=== PATIENT | female | born 2005 | race Hispanic/Latino ===

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

== ENCOUNTER 2024-01-23 15:33 | Emergency (ER) | payer OTHER ==
[~2024-01-23] VITALS: Ht 160 cm; Wt 59.0 kg
[~2024-01-23 15:33] MED LIST changes: -ACETAMINOPHEN 325 MG TAB PO ONE
[2024-01-23] MEDS ORDERED: KETO10TA2 PO (16:29)
[2024-01-23 16:42] VITALS: BP 109/51; PULSE 84; RESP 16; TEMP 98.3; O2SAT 99
== END 2024-01-23 16:57 | disposition home or self-care (01) ==
LOC: EDH 15:33
DX: R07.89 Other chest pain (principal); M25.552 Pain in left hip; Z79.899 Other long term (current) drug therapy; Z88.1 Allergy status to other antibiotic agents; V89.2XXA Person injured in unspecified motor-vehicle accident, traffic, initial encounter; Y93.89 Activity, other specified; Y92.488 Other paved roadways as the place of occurrence of the external cause; Y99.8 Other external cause status
CPT/HCPCS: 71045; 73502